=== PATIENT | male | born 1980 ===

== ENCOUNTER 2020-09-20 21:22 | Emergency (ER) | payer OTHER ==
[2020-09-20] MEDS ORDERED: FENTANYL CITR 100 MCG/2 ML ONE (22:02)
[2020-09-20 22:06] LABS: ALT/SGPT 19 U/L (12-78); AST/SGOT 20 U/L (15-37); Albumin 4.2 g/dL (3.4-5.0); Alkaline Phosphatase 67 U/L (45-117); BUN Blood Urea Nitrogen 17 mg/dL (7-18); Bicarbonate 24 mmol/L (21-32); Bilirubin Direct 0.1 mg/dL (0-0.2); Bilirubin Total 0.4 mg/dL (0.2-1.0); Glucose Level 93 mg/dL (74-106); Magnesium 2.6 mg/dL (1.8-2.4); NT PRO-BNP 47 pg/mL (<125); Potassium 3.7 mmol/L (3.5-5.1); Protein, Total 8.2 g/dL (6.4-8.2); Sodium Level 140 mmol/L (136-145); Troponin (Emerg Dept Use Only) < 0.02 ng/mL (0.0-0.045)
[2020-09-20 22:08] LABS: Basophils % 0.4 % (0-1.3); Hematocrit 40.1 % (39.6-49.0); Lymphocytes % 24.8 % (15.3-44.8); MPV 9.1 fL (7.6-11.3); RBC Red Blood Cell Count 4.71 M/uL (4.33-5.43)
[2020-09-20 22:18] LABS: Protime INR 1.08
[2020-09-20 23:04] LABS: Barbiturates NEGATIVE (NEGATIVE); Benzodiazepines NEGATIVE (NEGATIVE); Cocaine NEGATIVE (NEGATIVE); METHAMPHETAM NEGATIVE (NEGATIVE); Methadone NEGATIVE (NEGATIVE); Opiates NEGATIVE (NEGATIVE); Phencyclidine NEGATIVE (NEGATIVE); THC Cannibis NEGATIVE (NEGATIVE)
--- NOTE | 2020-09-21 01:11 | ER ---
Nurse's Notes [facility] Name: Bahman Carlson Age: 40 yrs Sex: Male : 1980 Arrival Date: 09/20/2020 Time: 21:27 Bed 17 Private MD: Diagnosis: Other chest pain Presentation: 09/20 21:27 Chief complaint: EMS states: patient has been complaining of right-sided chest pain jm8 since 3 pm today. Coronavirus screen: Client denies travel out of the [place] in the last 14 days. At this time, the client does not indicate any symptoms associated with coronavirus-19. Ebola Screen: Patient negative for fever greater than or equal to 101.5 degrees Fahrenheit, and additional compatible Ebola Virus Disease symptoms Patient denies exposure to infectious person. Patient denies travel to an Ebola-affected area in the 21 days before illness onset. Initial Sepsis Screen: Does the patient meet any 2 criteria? No. Patient's initial sepsis screen is negative. Does the patient have a suspected source of infection? No. Patient's initial sepsis screen is negative. Risk Assessment: Do you want to hurt yourself or someone else? Patient reports no desire to harm self or others. Onset of symptoms was September 20, 2020 at 15:00. 21:27 Method Of Arrival: EMS: [facility] 21:27 Acuity: HORACE 2 jm8 Historical: - Allergies: 21:32 No Known Allergies; jm8 - Home Meds: 21:32 None [Active]; jm8 - PMHx: 21:32 COPD; Diabetes - NIDDM; 8 - PSHx: 21:32 None; jm8 - Immunization history:: Adult Immunizations up to date, Client reports receiving the 2nd dose of the Covid vaccine. - Social history:: Smoking status: Patient reports the use of cigarette tobacco products, denies chronic smoking, but will smoke occasionally. Screenin:37 Abuse screen: Denies threats or abuse. Denies injuries from another. Nutritional 8 screening: No deficits noted. Tuberculosis screening: No symptoms or risk factors identified. Fall Risk None identified. Assessment: 21:33 General: Appears in no apparent distress. comfortable, Behavior is calm, cooperative, 8 appropriate for age. Pain: Complains of pain in right side chest Pain currently is 4 out of 10 on a pain scale. Quality of pain is described as dull, heavy, Pain began 6 hours ago. Neuro: No deficits noted. Level of Consciousness is awake, alert, obeys commands, Oriented to person, place, time. Cardiovascular: Reports chest pain, Rhythm is sinus rhythm. Respiratory: No deficits noted. Respiratory: Airway is patent Trachea midline Respiratory effort is even, unlabored, Respiratory pattern is regular, symmetrical. GI: No deficits noted. No signs and/or symptoms were reported involving the gastrointestinal system. : No deficits noted. No signs and/or symptoms were reported regarding the genitourinary system. EENT: No deficits noted. No signs and/or symptoms were reported regarding the EENT system. Derm: No deficits noted. No signs and/or symptoms reported regarding the dermatologic system. Musculoskeletal: No deficits noted. No signs and/or symptoms reported regarding the musculoskeletal system. Vital Signs: 21:27 BP 128 / 87; Pulse 95; Resp 16; Temp 98.3; Pulse Ox 98% ; Weight 81.65 kg; Height 6 ft. jm8 0 in. (182.88 cm); Pain 4/10; 23:00 BP 129 / 75; Pulse 58; Resp 16; Pulse Ox 100% on R/A; jm8 09/21 01:19 BP 133 / 85; Pulse 77; Resp 16; Pulse Ox 100% on R/A; jm8 09/20 21:27 Body Mass Index 24.41 (81.65 kg, 182.88 cm) [facility] ED Course: 09/20 21:27 Patient arrived in ED. jm8 21:30 Isaiah Bell PA is PHCP. cp 21:30 Dennis Krueger MD is Attending Physician. cp 21:31 Triage completed. jm8 21:32 Arm band placed on left wrist. jm8 21:37 Patient has correct armband on for positive identification. Bed in low position. Call 8 light in reach. Side rails up X2. Adult w/ patient. 21:58 XRAY Chest (1 view) In Process Unspecified. EDMS 09/21 01:22 No provider procedures requiring assistance completed. Assist provider with bone marrow jm8 aspiration. IV discontinued, intact, bleeding controlled. Administered Medications: 09/20 21:53 Drug: fentaNYL (PF) 25 mcg Route: IVP; Site: right wrist; 8 22:29 Follow up: Response: No adverse reaction jm8 Outcome: 09/21 01:10 Discharge ordered by MD. caicedo 01:21 Discharged to Law Enforcement jm8 01:21 Condition: good 01:21 Discharge instructions given to patient, police, Instructed on discharge instructions, follow up and referral plans. medication usage, Demonstrated understanding of instructions, follow-up care, medications, Prescriptions given X 1. 01:22 Patient left the ED. jm8 Signatures: Dispatcher [employer] EDMS Isaiah Bell PA PA cp Malcaba, Joseph, RN RN jm8
--- NOTE | 2020-09-21 01:12 | EDPHYS ---
Physician Documentation [facility] Name: Bahman Carlson Age: 40 yrs Sex: Male : 1980 Arrival Date: 09/20/2020 Time: 21:27 Bed 17 Private MD: ED Physician Dennis Krueger HPI: 09/20 21:35 This 40 yrs old Male presents to ER via EMS with complaints of Chest Pain. cp 21:35 The patient or guardian reports chest pain that is located primarily in the anterior cp chest wall, right. 21:35 Onset: today, at 15:30. The pain does not radiate. Associated signs and symptoms: cp Pertinent negatives: abdominal pain, cough, diaphoresis, dizziness, lower extremity pain, lower extremity swelling, palpitations, shortness of breath, syncope. The chest pain is described as sharp. Duration: The patient or guardian reports a single episode, that is still ongoing. Historical: - Allergies: 21:32 No Known Allergies; [facility] - Home Meds: 21:32 None [Active]; [facility] - PMHx: 21:32 COPD; Diabetes - NIDDM; [facility] - PSHx: 21:32 None; [facility] - Immunization history:: Adult Immunizations up to date, Client reports receiving the 2nd dose of the Covid vaccine. - Social history:: Smoking status: Patient reports the use of cigarette tobacco products, denies chronic smoking, but will smoke occasionally. ROS: 21:40 Constitutional: Negative for body aches, chills, fever, poor PO intake. cp 21:40 Eyes: Negative for injury, pain, redness, and discharge. cp 21:40 Neck: Negative for pain with movement, pain at rest, stiffness. cp 21:40 Cardiovascular: Positive for chest pain, of the anterior aspect of right upper chest, Negative for edema, palpitations. 21:40 Respiratory: Negative for cough, shortness of breath, wheezing. 21:40 Abdomen/GI: Negative for abdominal pain, nausea, vomiting, and diarrhea, constipation. 21:40 Skin: Negative for cellulitis, rash. 21:40 Neuro: Negative for altered mental status, headache, numbness, syncope, weakness. 21:40 All other systems are negative. Exam: 21:45 Constitutional: The patient appears in no acute distress, alert, awake, cp non-diaphoretic, non-toxic, well developed, well nourished. 21:45 Head/Face: Normocephalic, atraumatic. cp 21:45 Eyes: Periorbital structures: appear normal, Conjunctiva: normal, no exudate, no injection, Sclera: no appreciated abnormality, Lids and lashes: appear normal, bilaterally. 21:45 ENT: External ear(s): are unremarkable, Nose: is normal, Mouth: Lips: moist, Oral mucosa: moist, Posterior pharynx: Airway: no evidence of obstruction, patent. 21:45 Neck: ROM/movement: is normal, is supple, without pain, no range of motions limitations. 21:45 Chest/axilla: Inspection: normal, Palpation: crepitus, is not appreciated, tenderness, that is mild, of the anterior aspect of right upper chest. 21:45 Cardiovascular: Rate: normal, Rhythm: regular, Heart sounds: murmur, not appreciated, Edema: is not appreciated, JVD: is not appreciated. 21:45 Respiratory: the patient does not display signs of respiratory distress, Respirations: normal, no use of accessory muscles, no retractions, labored breathing, is not present, Breath sounds: are clear throughout, no decreased breath sounds, no stridor, no wheezing. 21:45 Abdomen/GI: Inspection: abdomen appears normal, Palpation: abdomen is soft and non-tender, in all quadrants. 21:45 Back: pain, is absent, ROM is normal. 21:45 Neuro: Orientation: to person, place \T\ time. Mentation: is normal. 21:55 ECG was reviewed by the Attending Physician. cp Vital Signs: 21:27 BP 128 / 87; Pulse 95; Resp 16; Temp 98.3; Pulse Ox 98% ; Weight 81.65 kg; Height 6 ft. 8 0 in. (182.88 cm); Pain 4/10; 23:00 BP 129 / 75; Pulse 58; Resp 16; Pulse Ox 100% on R/A; 8 09/21 01:19 BP 133 / 85; Pulse 77; Resp 16; Pulse Ox 100% on R/A; 8 09/20 21:27 Body Mass Index 24.41 (81.65 kg, 182.88 cm) [facility] MDM: 09/20 21:32 Patient medically screened. cp 22:00 Differential diagnosis: abnormal EKG, acute myocardial infarction, myocarditis, cp pancreatitis, pericarditis, pleurisy, pneumonia, pneumothorax, stable angina, unstable angina. 09/21 01:10 The patient was given aspirin in the Emergency Department. cp 01:10 Data reviewed: vital signs, nurses notes, lab test result(s), EKG, radiologic studies, cp plain films, I have discussed the patient's presentation/case with the attending Emergency Department Physician; and as a result, I will discharge patient. Test interpretation: by ED physician or midlevel provider: ECG, plain radiologic studies. Counseling: I had a detailed discussion with the patient and/or guardian regarding: the historical points, exam findings, and any diagnostic results supporting the discharge/admit diagnosis, lab results, radiology results, the need for outpatient follow up, a barrel and receiver aligner, to return to the emergency department if symptoms worsen or persist or if there are any questions or concerns that arise at home. Response to treatment: the patient's symptoms have markedly improved after treatment, and as a result, I will discharge patient. Special discussion: Based on the patient's history, exam, and Dx evaluation, there is no indication for emergent intervention or inpatient Tx. It is understood by the patient/guardian that if the Sx's persist or worsen they need to return immediately for re-evaluation. 06 21:32 Order name: Basic Metabolic Panel 09/20 21:32 Order name: CBC with Diff 09/20 21:32 Order name: LFT's cp 09/20 21:32 Order name: Magnesium cp 09/20 21:32 Order name: NT PRO-BNP; Complete Time: 22:54 cp /16 21:32 Order name: PT-INR; Complete Time: 22:54 /16 21:32 Order name: Troponin (emerg Dept Use Only); Complete Time: 22:54 cp /16 21:32 Order name: UDS; Complete Time: 00:47 cp 09/21 00:47 Interpretation: Reviewed. /16 21:32 Order name: D-Dimer; Complete Time: 22:54 cp /16 21:32 Order name: Basic Metabolic Panel; Complete Time: 22:54 EDMS 09/21 00:47 Interpretation: Normal except: CL 108. / 21:32 Order name: CBC with Automated Diff; Complete Time: 22:54 EDMS 09/21 00:48 Interpretation: Normal except: HGB 13.4. 09/20 21:32 Order name: Liver (Hepatic) Function; Complete Time: 22:54 EDMS 09/20 21:32 Order name: Magnesium; Complete Time: 22:54 EDMS 09/20 21:32 Order name: XRAY Chest (1 view) 09/20 21:32 Order name: EKG; Complete Time: 21:33 09/20 21:32 Order name: Cardiac monitoring; Complete Time: 21:53 09/20 21:32 Order name: EKG - Nurse/Tech; Complete Time: 21:53 09/20 21:32 Order name: IV Saline Lock; Complete Time: 21:32 09/20 21:32 Order name: Labs collected and sent; Complete Time: 21:32 09/20 21:32 Order name: O2 Per Protocol; Complete Time: 21:32 09/20 21:32 Order name: O2 Sat Monitoring; Complete Time: 21:32 09/20 23:44 Order name: Troponin I 09/20 23:45 Order name: Troponin I EDMA 09/21 00:03 Order name: SARS-COV-2 RT PCR; Complete Time: 00:47 EDMS EC/16 21:55 Rate is 54 beats/min. Rhythm is regular. NC interval is normal. QRS interval is normal. cp QT interval is normal. T waves are Inverted in lead aVL. Interpreted by me. Reviewed by me. Administered Medications: 21:53 Drug: fentaNYL (PF) 25 mcg Route: IVP; Site: right wrist; [facility] 22:29 Follow up: Response: No adverse reaction [facility] Disposition: 09/21 05:03 Co-signature as Attending Physician, Dennis Krueger MD. rn Disposition: 09/21/20 01:10 Discharged to Home. Impression: Other chest pain. - Condition is Stable. - Discharge Instructions: Nonspecific Chest Pain, Aspirin and Your Heart. - Prescriptions for Ibuprofen 800 mg Oral Tablet - take 1 tablet by ORAL route every 8 hours As needed take with food; 30 tablet. - Medication Reconciliation Form, Thank You Letter, Antibiotic Education, Prescription Opioid Use form. - Follow up: Private Physician; When: 2 - 3 days; Reason: Recheck today's complaints. - Problem is new. - Symptoms have improved. Signatures: Dispatcher [employer] EDMA Dennis Krueger MD MD rn Isaiah Bell PA PA cp Malcaba, Joseph RN RN jm8 Corrections: (The following items were deleted from the chart) 09/20 22:30 21:33 CORONAVIRUS+MRKELSEA ordered. EDMA EDMA 23:06 22:59 This 40 yrs old Male presents to ER via EMS with complaints of Chest Pain. cp marifer 09/21 01:22 01:10 09/21/2020 01:10 Discharged to Home. Impression: Other chest pain. Condition is jm8 Stable. Forms are Medication Reconciliation Form, Thank You Letter, Antibiotic Education, Prescription Opioid Use. Follow up: Private Physician; When: 2 - 3 days; Reason: Recheck today's complaints. Problem is new. Symptoms have improved. cp
[2020-09-21 01:45] VITALS: TEMP 98.3
[2020-09-21 01:46] VITALS: O2SAT 100
[2020-09-21 01:48] VITALS: BP 133/85
--- NOTE | 2020-09-21 08:18 | EKG ---
Test Date: 2020-09-20 Test Time: 21:46:25 Chemical Machine Tender: ANNA MEASUREMENT RESULTS: Intervals: Rate: 54 MS: 176 QRSD: 98 QT: 416 QTc: 394 Perry: P: 75 MS: 176 QRS: 84 T: 71 INTERPRETIVE STATEMENTS: Electronic ventricular pacemaker No previous ECG available for comparison Electronically Signed On 09-21-20 08:18:00 CDT by Jefry Reis
--- NOTE | 2020-09-21 08:24 | RAD REPORT ---
EXAM DESCRIPTION: RAD - Chest Single View - 09/20/2020 9:58 pm CLINICAL HISTORY: CHEST PAINright-side COMPARISON: None TECHNIQUE: AP portable chest image was obtained 09/20/2020 9:58 pm . FINDINGS: Lungs are clear. Heart and vasculature are normal. No measurable pleural effusion and no p neumothorax. No acute bony abnormality seen. No acute aortic findings suspected. IMPRESSION: No acute cardiopulmonary process.
== END 2020-09-21 01:22 | disposition home or self-care (01) ==
LOC: ER 21:22
DX: R07.89 Other chest pain (principal); J44.9 Chronic obstructive pulmonary disease, unspecified; Z20.822 Contact with and (suspected) exposure to COVID-19; Z72.0 Tobacco use
CPT/HCPCS: 93005; 85025; 80048; 36415; 83735; 85610; 85379; 80076; 80307 ×8; 84484 ×2; 83880; 71045; U0003; J3010